=== PATIENT | male | born 1945 | race Caucasian/White ===

== ENCOUNTER → 2018-03-13 05:55 | Outpatient (CLI) | payer MEDICARE, OTHER, SELFPAY ==
--- NOTE | 2018-03-13 | NM_ITS ---
CARDIOLITE SPECT MYOCARDIAL PERFUSION SCAN, REST AND STRESS: EXERCISE STRESS BESS [facility] REVIEW QGS EF AND WALL MOTION EVALUATION: QPS - PERFUSION EVALUATION HISTORY: chest pain DOSE: 10.21 mCi technetium 99m mibi intravenously at rest followed by 29.2 mCi technetium 99m mibi following the intravenous ministration of 0.4 mg of Lexiscan. Resting blood pressure is 156/91. Stress blood pressure 123/74. FINDINGS: Ejection fraction is calculated to be 52%. Stress images reveal severely decreased activity in the apex septum and inferior wall with significant improvement on rest images. Gated images calculated ejection fraction of 52% with normal wall motion IMPRESSION: Large amount of reversible ischemia in the inferior apical and septal wall with normal ejection fraction normal wall motion
--- NOTE | 2018-03-13 09:56 | HMH.ITSHM ---
ulorie atorvastatin primidone metoprolol
--- NOTE | 2018-03-13 11:57 | HMH.ITSHM ---
uloric atorvastatin primidone metoprolol
== END ==
PROVIDERS: Family Provider Family Medicine; PCP Family Medicine; Visit Provider Family Medicine
DX: R07.9 Chest pain, unspecified (principal)
CPT/HCPCS: 78452; 93017; A9502; J2785

== ENCOUNTER → 2018-04-04 09:52 | Outpatient (CLI) | payer MEDICARE, OTHER, SELFPAY ==
--- NOTE | 2018-04-04 09:53 | CA_ITS ---
PROCEDURE: 2-D M-mode and color Doppler study INDICATIONS FOR THE TEST: Chest pain+ COPD Heart Murmur+ Tobacco Smokingex Palpitations Fatigue Syncope Edema Hypertension+Diabetes Mellitus Rheumatic Fever SOB TARANGO+Obesity Hyperlipidemia+ Family History HD+ Additional History Abn stress test, Abn EKG, CAD, CABG, Hx of OR PATIENT INFORMATION HEIGHT: 68 WEIGHT: 170 GENDER: Male B/P: 151/81 2-D/M-MODE INTERPRETATION: 2-D MEASUREMENTS OBSERVED VALUES IN CMS Right Ventricular Dimension (RVDd) 2.4 Interventricular Septum (Thickness)(IVsd) 0.9 Left Ventricular Internal Dimensions(LVIDd) 4.5 Left Ventricular Posterior Wall (Thickness)(LVPWd) 0.9 Aortic Root 2.8 Aortic Cusp Separation 2.0 Left Atrial Dimensions (LAD) 3.7 2D 1. Left atrium is mildly enlarged, left ventricle is normal size, mild concentric left ventricular hypertrophy, visually estimated ejection fraction of 55% with no obvious regional wall motion abnormality, endocardial surface of poorly visualized. 2. The right atrium and right ventricle are normal size and contractility. 3. The aortic valve is thickened and calcified leaflet continue to display mobility. 4. The mitral and tricuspid valve leaflets are minimally thickened. 5. The pulmonic valve is poorly visualized 6. No significant pericardial effusion noted. DOPPLER INTERROGATION: Doppler interrogation of the aortic, mitral and tricuspid valvular presence of mild mitral and tricuspid regurgitation. Tricuspid regurgitant jet velocity is insufficient for calculation of the right ventricular systolic pressure, grade 1 diastolic dysfunction seen with tissue Doppler evidence of raised left atrial pressure. CONCLUSION: 1. Mildly enlarged left atrium, normal left ventricular size, mild concentric left ventricular hypertrophy, visually estimated ejection fraction 55% with no obvious regional wall motion abnormality, endocardial subsequent poorly visualized, grade 1 diastolic dysfunction seen with tissue Doppler evidence of raised left atrial pressure. 2. Mild mitral and tricuspid regurgitation 3. No significant pericardial effusion noted
== END ==
PROVIDERS: Family Provider Family Medicine; PCP Family Medicine; Visit Provider Internal Medicine
DX: I25.10 Atherosclerotic heart disease of native coronary artery without angina pectoris (principal); R06.00 Dyspnea, unspecified; R94.39 Abnormal result of other cardiovascular function study; I20.9 Angina pectoris, unspecified
CPT/HCPCS: 93306

== ENCOUNTER → 2018-04-30 14:08 | Outpatient (CLI) | payer MEDICARE, OTHER, SELFPAY ==
[2018-05-02 17:10] LABS: H. pylori Breath Test Negative (Negative)
== END ==
PROVIDERS: Visit Provider Physician Assistant
DX: R11.2 Nausea with vomiting, unspecified (principal)
CPT/HCPCS: 83013

== ENCOUNTER → 2019-04-28 09:32 | Outpatient (CLI) | payer MEDICARE, BC, SELFPAY ==
--- NOTE | 2019-04-28 09:34 | CA_ITS ---
PROCEDURE: 2-D M-mode and color Doppler study INDICATIONS FOR THE TEST: Chest painX COPD Heart MurmurX Tobacco Smoking Palpitations Fatigue Syncope Edema HypertensionXDiabetes Mellitus Rheumatic Fever SOBXDOE Obesity Hyperlipidemia Family History HD Additional History CAD,CABG.ABN EKG PATIENT INFORMATION HEIGHT: 68 WEIGHT:161 GENDER: Male B/P:139/78 2-D/M-MODE INTERPRETATION: 2-D MEASUREMENTS OBSERVED VALUES IN CMS Right Ventricular Dimension (RVDd) 2.3 Interventricular Septum (Thickness)(IVsd) .8 Left Ventricular Internal Dimensions(LVIDd) 5.4 Left Ventricular Posterior Wall (Thickness)(LVPWd) 1.0 Aortic Root 4.5 Aortic Cusp Separation 1.3 Left Atrial Dimensions (LAD) 1.9 2D 1. Technically difficult study because of the patient's factor and poor acoustic windows, endocardial surfaces are poorly visualized. 2. Left atrium is mildly enlarged, left ventricle is normal size, mild concentric left ventricular hypertrophy, visually estimated ejection fraction 50% with no regional wall motion abnormality endocardial subsequent poorly visualized, a repeat study with definitely contrast is recommended. 3. Mildly enlarged right ventricle with normal contractility. 4. The aortic valve is thickened and gastritis leaflet continue to display mobility. 5. The mitral and tricuspid valve leaflets are minimally thickened. 6. No significant pericardial effusion noted. 7. Pulmonic valve is poorly visualized. DOPPLER INTERROGATION: Doppler interrogation of the aortic, mitral and tricuspid valvular presence of mild mitral and tricuspid regurgitation, tricuspid regurgitation jet velocity is inadequate for calculation of the right ventricular systolic pressure, grade 1 diastolic dysfunction seen with tissue Doppler evidence of raised left atrial pressure. CONCLUSION: 1. Mildly enlarged left atrium, normal left ventricular size, mild concentric left ventricular hypertrophy, visually estimated ejection fraction 50% with no regional wall motion abnormality, grade 1 diastolic dysfunction seen with tissue Doppler evidence of raised left atrial pressure, repeat study with definitely contrast is recommended as endocardial surfaces are very poorly visualized. 2. Mildly enlarged right ventricle with normal contractility. 3. Mild mitral and tricuspid regurgitation 4. No significant pericardial effusion noted.
== END ==
PROVIDERS: PCP Family Medicine; Visit Provider Internal Medicine Cardiovascular Disease
DX: I25.10 Atherosclerotic heart disease of native coronary artery without angina pectoris (principal); R06.09 Other forms of dyspnea
CPT/HCPCS: 93306

== ENCOUNTER → 2019-07-21 14:08 | Outpatient (CLI) | payer MEDICARE, BC, SELFPAY ==
[2019-07-21 14:42] LABS: Basophils % 0.3 % (0.1-2.0); Eosinophils # 0.1 K/mm3 (0.0-0.4); Eosinophils % 2.4 % (0.1-12.0); Hematocrit 47.3 % (42.0-52.0); Hemoglobin 14.8 g/dL (14.1-18.0); Lymphocytes # 1.1 K/mm3 (0.7-4.5); Mean Corpuscular HGB Conc 31.4 g/dL (31.8-35.4); Mean Corpuscular Hemoglobin 33.6 pg (27.0-31.2); Mean Platelet Volume 6.9 fl (7.4-10.4); Monocytes # 0.4 K/mm3 (0.1-1.0); Monocytes % 7.9 % (1.7-9.3); Neutrophils # 3.9 K/mm3 (1.8-7.8); Neutrophils % 69.3 % (37.0-80.0); Platelet Count 214 K/mm3 (142-424); Red Blood Count 4.42 M/mm3 (4.60-6.20); Red Cell Distribution Width 13.2 % (11.5-17.5); White Blood Count 5.6 K/mm3 (4.8-10.8)
--- NOTE | 2019-07-21 14:48 | ECG_ITS ---
APPROVED REPORT Exam: Resting ECG HR:66 bpm ECG Measurements Heart Rate 66 AXES IL 154 P 57 QRSd 96 QRS 60 QT 402 T 122 QTc 421 <Conclusion> Normal sinus rhythm Nonspecific ST and T wave abnormality Abnormal ECG Electronically signed by : Stan Rainey, 07/21/2019 18:31:30
[2019-07-21 15:40] LABS: Anion Gap 13.5 mEq/L (5-15); Blood Urea Nitrogen 7 mg/dL (7-18); Calcium 9.1 mg/dL (8.5-10.1); Carbon Dioxide 29 mmol/L (21.0-32.0); Chloride 95 mmol/L (98-107); Creatinine,Serum 0.86 mg/dL (0.70-1.30); Estimated Glomerular Filt Rate 87 ml/min (>60); GFR (African American) 105 ML/MIN (>60); Glucose 93 mg/dL (74-106); Potassium 4.5 mmoL/L (3.5-5.1); Sodium 133 mmol/L (136-145)
== END ==
PROVIDERS: PCP Family Medicine; Visit Provider Family Medicine
DX: Z01.818 Encounter for other preprocedural examination (principal); H25.9 Unspecified age-related cataract
CPT/HCPCS: 36415; 80048; 85025; 93005

== ENCOUNTER 2020-03-30 08:32 | Day surgery (SDC) | payer MEDICARE, BC, SELFPAY ==
[2020-03-30] VITALS (12 sets, daily range): BP systolic 111–163; BP diastolic 70–98; PULSE 57–94; RESP 16–20; TEMP 36.6; O2SAT 96–100; BMI 25.5
[2020-03-30 09:22] LABS: Basophils % 0.6 % (0.1-2.0); Eosinophils # 0.2 K/mm3 (0.0-0.4); Eosinophils % 3.9 % (0.1-12.0); Hematocrit 43.1 % (42.0-52.0); Hemoglobin 14.7 g/dL (14.1-18.0); Lymphocytes # 1.6 K/mm3 (0.7-4.5); Lymphocytes % 27.9 % (10-50); Mean Corpuscular HGB Conc 34.1 g/dL (31.8-35.4); Mean Corpuscular Hemoglobin 34.9 pg (27.0-31.2); Mean Corpuscular Volume 102.4 fl (80-94); Mean Platelet Volume 7.5 fl (7.4-10.4); Monocytes # 0.4 K/mm3 (0.1-1.0); Monocytes % 6.8 % (1.7-9.3); Neutrophils # 3.5 K/mm3 (1.8-7.8); Neutrophils % 60.8 % (37.0-80.0); Platelet Count 211 K/mm3 (142-424); Red Blood Count 4.21 M/mm3 (4.60-6.20); Red Cell Distribution Width 13.4 % (11.5-17.5); White Blood Count 5.8 K/mm3 (4.8-10.8)
[2020-03-30 09:25] LABS: Chloride 102 mmol/L (98-107); Potassium 4.3 mmoL/L (3.5-5.1); Sodium 135 mmol/L (136-145)
[2020-03-30 09:28] LABS: Anion Gap 9.3 mEq/L (5-15); Blood Urea Nitrogen 13 mg/dl (9-20); Carbon Dioxide 28 mmol/L (22.0-30.0); Creatinine Clearance Estimated 69 mL/min (50-200); Estimated Glomerular Filt Rate 94 ml/min (>60); GFR (African American) 114 ML/MIN (>60)
[2020-03-30 09:29] LABS: Glucose 105 mg/dl (74-100)
--- NOTE | 2020-03-30 11:00 | IR_ITS ---
APPROVED REPORT Patient Location: Outpatient PROCEDURES Left heart catheterization Left ventriculogram Selective coronary angiogram Left internal mammary angiography Selective engage in the saphenous vein graft to the circumflex artery Selective engagement of the saphenous vein graft to the right coronary artery Drug-eluting stent deployment to the mid dominant right coronary artery INDICATION Coronary disease, History of coronary bypass surgery, Recurrent angina pectoris, Right coronary artery bypass graft not backfilling a large posterior lateral ventricular branch requiring chippewa-cree flow circulation revascularization Informed consent was obtained prior to the procedure. COMPLICATIONS none Estimated Blood Loss: less than 10 mls TECHNIQUE One percent lidocaine used to anesthetize the right groin. The right femoral artery was accessed via the Seldinger technique and a 5 Kittitian sheath was placed in the right femoral artery. A JL 4, JR4 catheter were used to perform left heart catheterization, left ventriculogram selective coronary angiography as well as selective engagement of the 2 vein grafts and the left internal mammary artery. At the end of the procedure the 4 Kittitian sheath was exchanged for a 6 Kittitian sheath and therapeutic heparin was administered giving a therapeutic ACT. The JR4 guide catheter was used to intubate the right coronary artery and a Choice PT extra-support wire was placed distally. A 3.5 x 12 mm resolute shoaib stent was deployed at 24 lawrence reducing the severe stenosis to less than 10%. ZEKE-3 flow was present before and after the procedure. At the end of the procedure the apparatus was removed the groin was reprepped gloves were changed sheath was removed good hemostasis was achieved using Perclose device patient was transferred to the postop holding area in stable condition ANGIOGRAPHIC RESULTS The left main artery Has an ostial 10 to 20% stenosis The left anterior descending artery Has a stent which originates off the left main artery and is widely patent with minimal in-stent restenosis. There is excellent proximal and distal transitioning of the stent. The remaining LAD is a smaller caliber yet still patent vessel. No identifiable diagonal arteries are visualized The circumflex artery Ostially occluded The right coronary artery Is a dominant vessel and has an ostial 30% stenosis followed by mid vessel concentric 80% stenosis which then fills a moderate to large posterior lateral ventricular branch. There is no retrograde flow from a subtotally occluded posterior descending artery. The KNIGHT ventriculogram reveals Preserved 55% The left ventricular end-diastolic pressure 10 mmHg The left internal mammary artery is patent to a small less than 1.5 mm diagonal artery with no backfilling of the chippewa-cree LAD The saphenous vein graft to the circumflex artery is patent The saphenous vein graft to a small posterior descending artery is patent. There is no backfilling of the PDA into the chip[place]-cree right coronary artery IMPRESSION Coronary artery disease as described above Successful stenting of the [place]cree right coronary artery supplying a moderate to large posterior lateral ventricular system reducing the severe stenosis to less than 10% with one drug-eluting stent Patent HART to a small diagonal artery Patent saphenous vein graft to the circumflex artery Patent saphenous vein graft to a small posterior descending artery which does not backfill the [place]cree right coronary PLAN 1. Dual antiplatelet therapy 2. Cardiac rehabilitation 3. Avoidance of tobacco products 4. LDL less than 55 5. Risk factor modification Electronically signed by : Gerard Medina, 03/30/2020 11:40:20
--- NOTE | 2020-03-30 14:43 | HMH.PHACLD ---
Myke Clark has received discharge medication counseling on the following medications: RAMIPRIL 2.5MG PATIENT TAKING ALL OTHER REQUIRED MEDICATIONS. ON MEOTPROLOL, STATIN, PLAVIX, AND ASPIRIN. PATIENT HAD NO QUESTIONS AT THIS TIME. -FRANCIS REEVES, PHARMD
[2020-03-30 16:04] LABS: CATHL Activated Clotting Time 292 SEC (74-125)
== END 2020-03-30 14:40 | disposition home or self-care (01) ==
LOC: CATHLAB 08:33
PROVIDERS: PCP Family Medicine; Visit Provider Internal Medicine
DX: E78.5 Hyperlipidemia, unspecified (principal); I10 Essential (primary) hypertension; R06.00 Dyspnea, unspecified; R42 Dizziness and giddiness; R94.31 Abnormal electrocardiogram [ECG] [EKG]; Z82.49 Family history of ischemic heart disease and other diseases of the circulatory system; Z95.1 Presence of aortocoronary bypass graft; I25.110 Atherosclerotic heart disease of native coronary artery with unstable angina pectoris; Z95.5 Presence of coronary angioplasty implant and graft; I25.700 Atherosclerosis of coronary artery bypass graft(s), unspecified, with unstable angina pectoris; I25.2 Old myocardial infarction; T82.855A Stenosis of coronary artery stent, initial encounter; Z79.02 Long term (current) use of antithrombotics/antiplatelets
CPT/HCPCS: 80048; 85025; 85347; 92928; 93459; 99152; C1725; C1760; C1769; C1876; C1894; C9600; J1644; Q9967

== ENCOUNTER → 2020-05-04 14:59 | Outpatient (CLI) | payer MEDICARE, BC, SELFPAY ==
--- NOTE | 2020-05-04 15:02 | CA_ITS ---
APPROVED REPORT EXAM: Comprehensive 2D, Doppler, and color-flow Echocardiogram [employer] Purification Operator: Ana Bernardo RVT Ht: 5 ft 8 in Wt: 166lbs BSA: 1.89 BP: 132/75 mmHg Indications: SOA,CAD,CABG,STENTS,HTN,HLD,EX SMOKER 2D Dimensions LVOT 1.50 cm (M/F) 1.5-2.5 M-Mode Dimensions RVDd 3.26 cm (0.9-2.6) LVDd 6.18 cm (3.5-5.7) LVDs 4.45 cm (3.5-5.7) IVSd 0.51 cm (0.6-1.1) PWd 0.51 cm (0.6-1.1) EF (Teich) 53.20% FS 28.00% EDV (Teich) 192.60 mL ESV (Teich) 90.10 mL LV Diastology E/A Ratio 1.18 Mitral Valve MV A Velocity 62.00 (40-130 cm/s) Left Ventricle Left atrium is mildly enlarged, left ventricle is normal size, mild concentric left ventricular hypertrophy, visually estimated ejection fraction 55% with no regional wall motion abnormality, grade 1 diastolic dysfunction seen without tissue Doppler evidence of raise left atrial pressure. Right Ventricle Right atrium and right ventricle are mildly enlarged with normal contractility. Aortic Valve Aortic valve is thickened and calcified leaflet continue to display mobility, there is no aortic stenosis, there is mild aortic insufficiency. Mitral Valve Mitral valve is minimally thickened, there is no mitral stenosis, there is mild mitral regurgitation. Tricuspid Valve Tricuspid valve is grossly normal, there is mild tricuspid regurgitation, tricuspid regurgitation jet velocity is inadequate for calculation of the right ventricular systolic pressure. Pulmonic Valve Pulmonic valve is poorly visualized. Great Vessels Aortic root is normal size. Pericardium No significant pericardial effusion noted. Conclusion 1. Mild biatrial enlargement, normal left ventricular size, mild concentric left ventricular hypertrophy, visually estimated ejection fraction 55% with no regional wall motion abnormality, grade 1 diastolic dysfunction seen without tissue Doppler evidence of raise left atrial pressure. 2. Thickened and calcified aortic valve without Doppler evidence of aortic stenosis, there is mild aortic insufficiency. 3. Mild mitral and tricuspid regurgitation. 4. No significant pericardial effusion noted. Electronically signed by : Tarik Zapata, 05/05/2020 11:55:57
== END ==
PROVIDERS: PCP Family Medicine; Visit Provider Family Medicine
DX: E78.5 Hyperlipidemia, unspecified (principal); I10 Essential (primary) hypertension; I25.10 Atherosclerotic heart disease of native coronary artery without angina pectoris; R06.00 Dyspnea, unspecified; R94.31 Abnormal electrocardiogram [ECG] [EKG]; Z82.49 Family history of ischemic heart disease and other diseases of the circulatory system; Z95.1 Presence of aortocoronary bypass graft
CPT/HCPCS: 93306

== ENCOUNTER → 2020-11-08 11:47 | Outpatient (CLI) | payer MEDICARE, BC, SELFPAY ==
[2020-11-08 13:42] LABS: Alanine Aminotransferase 30 U/L (12-78); Albumin Level 4.2 g/dl (3.5-5.0); Albumin/Globulin Ratio 1.5 (1.1-1.8); Alkaline Phosphatase 83 U/L (38-126); Aspartate Amino Transferase 34 U/L (17-59); Bilirubin,Total 1.4 mg/dl (0.2-1.3); Blood Urea Nitrogen 12 mg/dl (9-20); Calcium 9.4 mg/dl (8.4-10.2); Carbon Dioxide 28 mmol/L (22.0-30.0); Chloride 98 mmol/L (98-107); Chol/HDL Ratio 1.8 (1-3.5); Cholesterol 114 mg/dl (140-200); Estimated Glomerular Filt Rate 94 ml/min (>60); GFR (African American) 114 ML/MIN (>60); Globulin 2.8 g/dL (1.3-3.2); Glucose 108 mg/dl (74-100); HDL Cholesterol 65 mg/dl (40-60); Sodium 133 mmol/L (136-145); Triglycerides 58 mg/dl (30-150); Uric Acid 5.6 mg/dl (3.5-8.5); VLDL Cholesterol 12 mg/dL (0-40)
[2020-11-08 13:56] LABS: Direct LDL Cholesterol 35.94 mg/dL (100-129)
[2020-11-08 14:02] LABS: 25-OH Vitamin D, Total 27.3 ng/mL (30-100)
[2020-11-08 14:35] LABS: Vitamin B12 815 pg/mL (239-931)
== END ==
PROVIDERS: Visit Provider Physician Assistant
DX: E78.2 Mixed hyperlipidemia (principal); E79.0 Hyperuricemia without signs of inflammatory arthritis and tophaceous disease; E55.9 Vitamin D deficiency, unspecified; E53.8 Deficiency of other specified B group vitamins; I10 Essential (primary) hypertension
CPT/HCPCS: 36415; 80053; 80061; 82306; 82607; 84550

== ENCOUNTER → 2021-02-13 06:10 | Outpatient (CLI) | payer MEDICARE, BC, SELFPAY ==
--- NOTE | 2021-02-13 06:42 | CA_ITS ---
APPROVED REPORT Exam: Pharmacologic Technologist: Adenike Pan, Ht: 5 ft 8 in Wt: 179 lbs BSA: 1.95 m2 HR: 67 bpm BP: 146/73 mmHg Medical History Medications: Aspirin,,,,, Vitamin D3,,,,, Atorvastatin,,,,, Plavix,,,,, PriMIDONE,,,,, ULoric,,,,, Metoprolol Succinate ER,,,,, Furosemide,,,,, Vitamin B12,,,,, Stress Test Details Test: LEXISCAN HR Resting HR: 66 bpm Max Heart Rate (APMHR): 144.479860 bpm Max HR Achieved: 94 bpm Target HR (85% APMHR): 122.259889 bpm % of APMHR: 65.28 Recovery HR: 83 bpm BP Resting BP: 146/73 mmHg Max BP: 146/73 mmHg Recovery BP: 128.0/65.0 mmHg ECG Resting ECG: NSR, PRWP Ant. NSSTTW Abnormalities Clinical Reason for Termination: Completed Protocol Exercise duration: 04:01 min Highest Stage Achieved: Exercise capacity: 1.0 METs Stress ECG Conclusion Baseline EKG artifact due to arm tremors/movement. Symptoms: None Arrythmias/Ectopy: None ST-T Changes: <1.5mm ST Segment changes Conclusion: Non-Diagnostic Electronically signed by : Tarik Zapata, 02/13/2021 14:55:21
--- NOTE | 2021-02-13 06:42 | CA_ITS ---
APPROVED REPORT EXAM: Comprehensive 2D, Doppler, and color-flow Echocardiogram [employer] House Supervisor: Myrna Noble RT(R) Ht: 5 ft 8 in Wt: 175lbs BSA: 1.93 BP: 137/81 mmHg Indications: edema, HTN, SOB, hyperlipidemia, CAD, CABG, cardiac stents, ex smoker, old VA 2D Dimensions LVOT 1.96 cm (M/F) 1.5-2.5 LVEF (Mata's) 60.50 % M: 52 - 72 LV Volume 65.10 mL M: 62 - 150 LV Volume Index 33.73 mL/m2 M: 34 - 74 LA Volume 34.60 mL LA Volume Index 17.92 mL/m2 (M/F) 16-34 M-Mode Dimensions RVDd 1.55 cm (0.9-2.6) LA Diam 4.69 cm (1.9-4.0) LVDd 4.50 cm (3.5-5.7) Ao Diam 2.74 cm (2.0-3.7) LVDs 3.52 cm (3.5-5.7) IVSd 0.91 cm (0.6-1.1) PWd 0.91 cm (0.6-1.1) EF (Teich) 44.20% FS 21.80% EDV (Teich) 92.40 mL TAPSE 1.63 (<1.7) ESV (Teich) 51.60 mL LV Diastology E Decel Time 207.00 (160-240 msec) E/A Ratio 1.1 MED E' 7.40 (< 7 cm/sec) E'/MED E' Ratio 11.93 (>14) LAT E' 11.30 (<10 cm/sec) E/LAT E' Ratio 7.81 (>14) Mitral Valve MV E Max Keagan. 88.00 (40-130 cm/s) MV A Velocity 77.00 (40-130 cm/s) E/A Ratio 1.14 MV Decel. Time 207.00 (160-240 ms) MV PHT 61.00 ms Left Ventricle Technically difficult study because of the patient factors and poor acoustic windows, if clinically indicated repeat study with Definity contrast is recommended. Left atrium is mildly enlarged, left ventricle is normal size, mild concentric left ventricular hypertrophy, visually estimated ejection fraction 55% with no regional wall motion abnormality, endocardial surfaces are poorly visualized. Diastolic parameters are inconclusive. Right Ventricle Right atrium and right ventricle are normal size and contractility. Aortic Valve Aortic valve is thickened and calcified without Doppler evidence of aortic stenosis or aortic insufficiency. Mitral Valve Mitral valve leaflets are minimally thickened, there is mild mitral regurgitation. Tricuspid Valve Tricuspid grossly normal, there is mild tricuspid regurgitation, tricuspid regurgitation jet velocity is inadequate for calculation of the right ventricular systolic pressure. Pulmonic Valve Pulmonic valve is poorly visualized. Great Vessels Aortic root is normal size. Pericardium No significant pericardial effusion noted Conclusion 1. Mildly enlarged left atrium, normal left ventricular size, mild concentric left ventricular hypertrophy, visually estimated ejection fraction 55% with no regional wall motion abnormality, diastolic parameters are inconclusive. Endocardial surfaces are very poorly visualized, repeat study with Definity contrast is recommended. 2. Thickened and calcified aortic valve without aortic stenosis or aortic insufficiency. 3. Mild mitral and tricuspid regurgitation. 4. No significant pericardial effusion noted. Electronically signed by : Tarik Zapata, 02/13/2021 13:31:50
--- NOTE | 2021-02-13 06:42 | NM_ITS ---
APPROVED REPORT Exam: Nuclear Stress Test Indication: cad, 4 stents, htn, hyperlipidemia, fm hx, c.p., sob Patient Location: Outpatient Stress Tech: [facility] Tech:NASIM Rosenberg RT (R)(N)(M) Ht: 5 ft 9 in Wt: 175 lbs HR: 67 bpm BP: 146/73 mmHg BSA: 1.95 m2 BMI: 25.8 History: cad, 4 stents, htn, hyperlipidemia, fm hx, c.p., sob Procedure: Patient received a 0.4 mg of intravenous Lexiscan, resting heart rate 67 bpm, resting blood pressure 146/73 mmHg, with Lexiscan maximum heart rate achived was 94 bpm which is Less than 85 % of the maximum predicted heart rate and blood pressure was 117/67 mmHg. With Lexiscan, patient denied any complaint of chest pain. Electrocardiogram Resting electrocardiogram shows sinus rhythm nonspecific ST-T changes, with Lexiscan there is less than 1.[address] segment depression noted from the baseline EKG. The EKG portion of the Lexiscan is nondiagnostic. Cardiac Stress and Resting SPECT Images: Cardiac Stress and Resting SPECT images were obtained using technetium 99m Myoview 31.3 mCi stress and 10.03 mCi at rest. Gated SPECT for analysis of segmental wall motion and calculation of the ejection fraction also done, prone images were also obtained. Cardiac stress and resting SPECT images show uniform myocardial activity without segmental perfusion abnormality, computer derived ejection fraction is 46% with no regional wall motion abnormality, right ventricle is normal size and contractility. Conclusion: 1. The EKG portion of the Lexiscan is nondiagnostic. 2. No scintigraphic evidence of reversible ischemia seen, computer derived ejection fraction 46% with no regional wall motion abnormality, right ventricle is normal size and contractility. Electronically signed by : Tarik Zapata, 02/13/2021 16:51:22
== END ==
PROVIDERS: PCP Family Medicine; Visit Provider Nurse Practitioner Family
DX: E78.2 Mixed hyperlipidemia (principal); I10 Essential (primary) hypertension; I25.810 Atherosclerosis of coronary artery bypass graft(s) without angina pectoris; I35.1 Nonrheumatic aortic (valve) insufficiency; R06.02 Shortness of breath; R06.83 Snoring; R40.0 Somnolence; R53.83 Other fatigue; Z95.1 Presence of aortocoronary bypass graft
CPT/HCPCS: 78452; 93017; 93306; A9502; J2785

== ENCOUNTER → 2021-05-24 08:26 | Outpatient (CLI) | payer MEDICARE, BC, SELFPAY | PROVIDERS: Visit Provider Nurse Practitioner Family | DX: Z20.822 Contact with and (suspected) exposure to COVID-19 (principal) ==

== ENCOUNTER 2021-05-24 09:02 | Emergency (ER) | payer MEDICARE, BC, SELFPAY ==
[2021-05-24 09:17] VITALS: BP 115/66; PULSE 91; RESP 19; TEMP 36.8; O2SAT 96; BMI 24.7
--- NOTE | 2021-05-24 09:29 | HMH.EDUTC ---
[facility] Disposition Clinical Impression: Encounter for laboratory testing for COVID-19 virus Nausea & vomiting Qualifiers: Vomiting type: unspecified Vomiting Intractability: unspecified Qualified Code(s): R11.2 - Nausea with vomiting, unspecified Disposition: Home, Self-Care Condition on Discharge: Good Instructions: Nausea and Vomiting-Adult, Ondansetron Additional Instructions: Drink extra fluids with and between meals. If you have difficulty drinking, try very small amounts of water or suck on ice chips. ? Avoid fruit juices, as these do not replace minerals and can actually increase diarrhea. ? adults can use sports drinks to replenish electrolytes. like Gatoraide or Pedialyte ? Eat food in small amounts and let your stomach recover. ? Get lots of rest. You may feel tired or weak. ? No greasy or fried foods for the next 24-48 hours BRAT diet Bananas Rice Apples and [place] you may also try Soft fruits: bananas, applesauce, avocado, pumpkin, canned fruit (packed in water not heavy syrup), and melons Steamed or boiled vegetables: carrots, green beans, potatoes, and squash Low-fiber starches: white bread, white rice, saltine crackers, cream of wheat, instant oatmeal, and noodles Unseasoned skinless baked chicken or turkey, scrambled eggs, yogurt and kefir Drinks: bone broth, apple juice, coconut water, Pedialyte, weak tea Homemade oral rehydration solution to prevent dehydration: 1 Liter of clean or boiled water, mix in 1/2 teaspoon of salt and 6 teaspoons of sugar and stir until both salt and sugar are completely dissolved. Cool down the water to room temperature or cooler before drinking as these foods is easy on your stomach ? Make sure to drink plenty of liquids ? Return if needed ? Straight to ER if any life threatening symptoms ? Zofran as prescribed ?FOODS TO AVOID Avoid milk and dairy products for three days. Yogurt and kefir are okay Avoid fried, fatty, greasy and spicy foods Avoid pork, veal, salmon, and sardines Avoid raw vegetables such as parsnips, beets, sauerkraut, corn on the cob, cabbage, broccoli, cauliflower, and onions Avoid citrus fruits: pineapples, oranges, grapefruits, brianne and limes Other fruits to avoid: tomatoes, cherries, grapes, figs, raisins, and seeded berries Avoid extremely hot or cold beverages Avoid alcohol Avoid coffee and caffeinated sodas Avoid added sugars and sweets like candy, soda and most juice Follow up with family doctor in the next 48-72 hours if no improvement or any worsening of symptoms You were tested for today for COVID19 your test result should be back in the next 24-48 hours, you may call to the [facility] to see if your test results are back in the next 48 hours [phone] [facility] hours are 9am-9pm You was given a handout with instructions for Self Quarantine and Self isolation for while you wait on test results and what to do if they are positive If you are positive the Health Dept will be contacting you also Referrals: Alondra Powers PA [Primary Care Provider] - As needed Time of Disposition: 10:55 Medical Decision Making - Ned Inquiry Pt receiving controlled substance: No Ned was queried for this patient: No Vital Signs: 05/24/21 09:17 Temperature 98.3 F Temperature Source Oral Pulse Rate [Left] 91 H Respiratory Rate 19 Blood Pressure [Right Arm] 115/66 Blood Pressure Mean [Right Arm] 82 Blood Pressure Source [Right Arm] Automatic Cuff 02 Sat by Pulse Oximetry 96 Orders (Tests/Meds): ORDERS Category Date Time Status Covid-19 Nasal PCR ([facility]) Routine Lab 05/24/21 09:26 Received Medical Decision Narrative: IV saline bolus infusing, patient reports feeling much better no vomiting since arrival Patient states that he feels much better after fluids no longer having any nausea and no nausea or diarrhea since arrival [facility] HPI - General Stated complaint: covid test Time Seen by Provider: 05/24/21 09:29 Mode of Arrival: Wheelchair Source o
[2021-05-24 12:28] VITALS: BP 119/62; PULSE 87; RESP 16; TEMP 36.8
== END 2021-05-24 11:30 | disposition home or self-care (01) ==
PROVIDERS: Emergency Provider Nurse Practitioner; PCP Physician Assistant
DX: Z20.822 Contact with and (suspected) exposure to COVID-19 (principal); R19.7 Diarrhea, unspecified; R11.2 Nausea with vomiting, unspecified; I25.10 Atherosclerotic heart disease of native coronary artery without angina pectoris; I25.2 Old myocardial infarction; I10 Essential (primary) hypertension; E78.5 Hyperlipidemia, unspecified; Z95.1 Presence of aortocoronary bypass graft; Z87.891 Personal history of nicotine dependence
CPT/HCPCS: G0463; 96365; 96376; 99202; J2405; U0003